=== PATIENT | male | born 1935 | race Two or more races ===

== ENCOUNTER 2017-05-05 11:20 | Emergency (ER) | payer MEDICARE, BC ==
[2017-05-05 11:41] VITALS: BP 114/68
--- NOTE | 2017-05-05 12:32 | UC ---
General HPI - HPI Summary HPI Summary: 81 y/o hx of Parkinson , DM 2 one week hx of lethargy , decrease cognitive function no fever, no chills, no cough, no dysurina - History of Current Complaint Chief Complaint: UCGeneralIllness Stated Complaint: LETHARGIC (DIABETIC) Time Seen by Provider: 05/05/17 11:23 Hx Obtained From: Family/Th[employer]er Onset/Duration: Gradual Onset, Lasting Days - 7, Still Present Timing: Constant Onset Severity: Moderate Current Severity: Severe Associated Signs & Symptoms: Positive: Confusion, Weakness. Negative: Agitation , Abdominal Pain, Anticoagulation Therapy, Back Pain, Cough, Chest Pain, Decreased Responsiveness, Dizziness, Diarrhea, Dysuria, Decreased Oral Intake, Diaphoresis, Edema, Fever, Headache, Hematemesis, Hemoptysis, Immunocompromised , In-Dwelling Medication Device, Melena, Nausea, Palpitations, Recent Medication Changes, Syncope, SOB, Trauma, Vomiting, Wheezing - Allergy/Home Medications Allergies/Adverse Reactions: Allergies Allergy/AdvReac Type Severity Reaction Status Date / Time Fluorescein Allergy Anaphylatic Verified 05/05/17 11:28 Shock Penicillins Allergy Unknown Verified 05/05/17 11:28 Reaction Details Home Medications: Home Medications Aspirin [Aspirin 81 MG TAB] 81 mg BEDTIME 05/05/17 [History Confirmed 05/05/17] Carbidopa/Levodop 25/250MG(*) [Sinemet 25/250 TAB(*)] 1 tab QID 05/05/17 [ History Confirmed 05/05/17] Insulin GLARGINE(*) [Lantus(*)] 30 unit BEDTIME 05/05/17 [History Confirmed ] Insulin Lispro [Humalog] 05/05/17 [History] Rosuvastatin Calcium [Crestor] 5 mg PO BEDTIME 05/05/17 [History Confirmed 05/05] Valsartan TAB* [Diovan TAB*] 80 mg BID 05/05/17 [History Confirmed 05/05/17] PMH/Surg Hx/FS Hx/Imm Hx Endocrine History: Diabetes Neurological History: Other - parkinsons Other Neurological History: parkinsons - Surgical History Surgical History: Yes Surgery Procedure, Year, and Place: Femoral bypass bilat - Family History Known Family History: Positive: Diabetes - Social History Alcohol Use: None Substance Use Type: None Smoking Status (MU): Never Smoked Tobacco Review of Systems Constitutional: Fatigue Skin: Negative Eyes: Negative ENT: Negative Respiratory: Negative Cardiovascular: Negative Gastrointestinal: Negative All Other Systems Reviewed And Are Negative: Yes Physical Exam Triage Information Reviewed: Yes Appearance: No Pain Distress, Well-Nourished Vital Signs: Initial Vital Signs Temp 98.3 F 05/05/17 11:31 Pulse 72 05/05/17 11:31 Resp 16 05/05/17 11:31 BP 114/68 05/05/17 11:31 Pulse Ox 95 05/05/17 11:31 Vital Signs Reviewed: Yes Eyes: Positive: Conjunctiva Clear ENT: Positive: Normal ENT inspection, Hearing grossly normal, Pharynx normal Neck: Positive: Supple, Nontender, No Lymphadenopathy Respiratory: Positive: Chest non-tender, Lungs clear, Normal breath sounds Cardiovascular: Positive: RRR, No Murmur, Pulses Normal Abdominal Exam: Normal Abdomen Description: Positive: Nontender, Soft. Negative: CVA Tenderness (R), CVA Tenderness (L), Distended, Guarding Bowel Sounds: Positive: Present Musculoskeletal Exam: Normal Musculoskeletal: Positive: Strength Intact, ROM Intact, No Edema Neurological: Positive: Lethargic, Other: - + confusion , UC Physical Exam Vital Signs On Initial Exam: Initial Vitals Temp Pulse Resp BP Pulse Ox 98.3 F 72 16 114/68 95 05/05/17 11:31 05/05/17 11:31 05/05/17 11:31 05/05/17 11:31 05/05/17 11:31 - Neurological Exam Neurological: Sensory/Motor Intact, CN Intact II-III, Reflexes Intact, Facial Symmetry, Speech Normal Course/Dx - Course Course Of Treatment: one week hx of confusion. will have the pt. go to [place] [facility] for eval and tx. spoke to Radha Stevenson about the transfer - Differential Dx - Multi-Symptom Provider Diagnoses: confusion. lethargy Discharge - Discharge Plan Condition: Stable [facility]
== END 2017-05-05 12:36 | disposition short-term general hospital (02) ==
LOC: UCCORT 11:20
DX: R41.0 Disorientation, unspecified (principal); R53.83 Other fatigue; E11.9 Type 2 diabetes mellitus without complications; Z79.4 Long term (current) use of insulin; G20 Parkinson's disease; Z88.0 Allergy status to penicillin
CPT/HCPCS: 81003; 93005; 99212; G0463

== ENCOUNTER 2017-07-03 16:29 | Emergency (ER) | payer MEDICARE, BC ==
[2017-07-03 17:18] VITALS: BP 164/65
--- NOTE | 2017-07-03 20:20 | UC ---
Shoulder Pain HPI - HPI Summary HPI Summary: 82 YEAR OLD MALE PRESENTS WITH COMPLAINS OF RIGHT SHOULDER PAIN POST FALL. PATIENT'S FAMILY DOES NOT KNOW HOW LONG THE PATIENT WAS ON THE GROUND. I WILL SEND HIM TO THE ER FOR CPK/IMAGING. - History of Current Complaint Chief Complaint: UCUpperExtremity Stated Complaint: S/P FALL RIGHT SHOULDER INJURY Time Seen by Provider: 07/03/17 16:53 Hx Obtained From: Patient Onset/Duration: Sudden Onset Severity Initially: Moderate Severity Currently: Moderate Pain Intensity: 7 Pain Scale Used: 0-10 Numeric - 5 - Allergies/Home Medications Allergies/Adverse Reactions: Allergies Allergy/AdvReac Type Severity Reaction Status Date / Time Gabapentin Allergy Unknown MOOD Verified 07/03/17 16:48 CHANGES Quetiapine [From Seroquel] Allergy Unknown COMBATIVE Verified 07/03/17 16:48 , AGGITATION Fluorescein Allergy Anaphylatic Verified 07/03/17 16:48 Shock Penicillins Allergy Unknown Verified 07/03/17 16:48 Reaction Details Home Medications: Home Medications Calcium Carbonate [Calcium 600] 600 mg PO 07/03/17 [History] Cyanocobalamin [B-12] 2,000 mcg PO 07/03/17 [History] PMH/Surg Hx/FS Hx/Imm Hx Previously Healthy: Yes - Surgical History Surgical History: Yes Surgery Procedure, Year, and Place: Femoral bypass bilat. APPENDECTOMY - Family History Known Family History: Positive: Diabetes - Social History Alcohol Use: None Substance Use Type: None Smoking Status (MU): Never Smoked Tobacco Review of Systems Constitutional: Negative Skin: Negative Eyes: Negative ENT: Negative Respiratory: Negative Cardiovascular: Negative Gastrointestinal: Negative Genitourinary: Negative Motor: Negative Neurovascular: Negative Musculoskeletal: Other: - RIGHT SHOULDER PAIN Neurological: Negative Psychological: Negative All Other Systems Reviewed And Are Negative: Yes Physical Exam Triage Information Reviewed: Yes Appearance: Well-Appearing Vital Signs: Initial Vital Signs Temp 36.6 C 07/03/17 16:54 Pulse 72 07/03/17 16:54 Resp 16 07/03/17 16:54 BP 164/65 07/03/17 16:54 Pulse Ox 100 07/03/17 16:54 Eye Exam: Normal ENT Exam: Normal Dental Exam: Normal Neck exam: Normal Neck: Positive: 1 Respiratory Exam: Normal Cardiovascular Exam: Normal Abdominal Exam: Normal Musculoskeletal: Positive: Other: - RIGHT SHOULDER PAIN Neurological Exam: Normal Psychological Exam: Normal Skin Exam: Normal Shoulder Course/Dx - Differential Dx/Diagnosis Provider Diagnoses: RIGHT SHOULDER PAIN Discharge - Discharge Plan Condition: Stable Disposition: HOME Patient Education Materials: Shoulder Pain (ED), Rib Contusion (ED) Referrals: No Primary Care Phys,NOPCP [Medical Doctor] - Additional Instructions: PLEASE GO TO ER TO RULE OUT RIGHT SHOULDER FRACTURE, RIB FRACTURE AND RHABDO.
== END 2017-07-03 17:06 | disposition home or self-care (01) ==
LOC: UCCORT 16:29
DX: M25.511 Pain in right shoulder (principal); Z88.0 Allergy status to penicillin
CPT/HCPCS: 99211; G0463